=== PATIENT | female | born 1930 | race Caucasian/White ===

== ENCOUNTER 2017-07-26 11:47 | Outpatient (CLI) | payer MEDICARE ==
--- NOTE | 2017-07-26 13:12 | RAD ---
PA AND LATERAL VIEWS CHEST: HISTORY: Pneumonia. COMPARISON: 05/25/2017 FINDINGS: The heart size is borderline. The aorta is tortuous. There are changes of COPD. No focal areas of consolidation, pneumothorax, or pleural effusions are seen. There are degenerative changes in the sp ine. An electronic device is seen in the left lower anterior chest wall. There are postop changes of a right rotator cuff repair. Old left-sided rib fractures are present. IMPRESSION: No acute process. POS: [id number]
== END 2017-07-26 11:48 | disposition home or self-care (01) ==
LOC: NAV RAD 11:47
PROVIDERS: ATTEND Internal Medicine
DX: J40 Bronchitis, not specified as acute or chronic (principal)
CPT/HCPCS: 71020